=== PATIENT | female | born 1985 | race Asian ===

== ENCOUNTER → 2023-04-15 11:25 | Outpatient (REF) | payer BC, SELFPAY | LOC: PNTC 11:25 | PROVIDERS: ATTENDING PHYSICIAN Obstetrics & Gynecology | DX: O99.119 Other diseases of the blood and blood-forming organs and certain disorders involving the immune mechanism complicating pregnancy, unspecified trimester (principal) | CPT/HCPCS: 59025; 76815 ==

== ENCOUNTER → 2023-04-23 07:54 | Outpatient (REF) | payer BC, SELFPAY | LOC: PNTC 07:54 | PROVIDERS: ATTENDING PHYSICIAN Obstetrics & Gynecology | DX: O99.119 Other diseases of the blood and blood-forming organs and certain disorders involving the immune mechanism complicating pregnancy, unspecified trimester (principal) | CPT/HCPCS: 59025; 76815 ==

== ENCOUNTER → 2023-04-29 15:20 | Outpatient (REF) | payer BC, SELFPAY | LOC: PNTC 15:20 | PROVIDERS: ATTENDING PHYSICIAN Obstetrics & Gynecology | DX: M35.00 Sjogren syndrome, unspecified (principal) | CPT/HCPCS: 59025; 76816 ==

== ENCOUNTER → 2023-05-02 10:35 | Outpatient (REF) | payer BC, SELFPAY | LOC: CLAB 10:35 | PROVIDERS: ATTENDING PHYSICIAN Obstetrics & Gynecology | DX: Z34.90 Encounter for supervision of normal pregnancy, unspecified, unspecified trimester (principal) | CPT/HCPCS: 87070; 87077; 87147 ==

== ENCOUNTER → 2023-05-06 11:38 | Outpatient (REF) | payer BC, SELFPAY | LOC: PNTC 11:38 | PROVIDERS: ATTENDING PHYSICIAN Obstetrics & Gynecology | DX: O99.119 Other diseases of the blood and blood-forming organs and certain disorders involving the immune mechanism complicating pregnancy, unspecified trimester (principal) | CPT/HCPCS: 36415; 59025; 76815 ==

== ENCOUNTER 2023-05-12 19:59 | Inpatient (IN) | payer BC, SELFPAY ==
[2023-05-12 20:15] VITALS: BP 132/57; BMI 25.3
[2023-05-12 21:00] LABS: % Basophils 0.3 % (0-2); % Eosinophils 0.6 % (0-6); % Immature Granulocytes 1.9 % (0-0.5); % Monocytes 5.9 % (1.7-9.3); % Neutrophils 79.3 % (42.2-75.2); Absolute Eosinophils 0.1 10^3/uL (0-0.7); Absolute Immature Granulocytes 0.2 10^3/uL (0-0.05); Absolute Monocytes 0.5 10^3/uL (0.1-0.6); Absolute Neutrophils 6.3 10^3/uL (1.4-6.5); Hemoglobin 11.1 g/dL (12.0-16.0); Mean Corp Hgb Conc. 35.8 g/dL (33.0-37.0); Mean Corpuscular Hgb 33.9 pg (27.0-31.0); Mean Corpuscular Volume 94.8 fL (81.0-99.0); Nucleated Red Blood Cells % 0 %; Platelet Count 212 10^3/uL (130-400); Red Blood Cell Count 3.27 10^6/uL (4.20-5.40); Red Cell Dist. Width 12.4 % (11.5-14.5)
[2023-05-12] MEDS: PLAQUENIL 200 MG PO (21:11)
[2023-05-12] MEDS: DELTASONE 4 MG PO (21:11)
[2023-05-12] MEDS: PENICILLIN 110 UNITS IV (21:28)
[2023-05-12] MEDS: PITOCIN 30 UNITS/NSS 500 ML IV (22:31)
[2023-05-13] MEDS: SUBLIMAZE 100 MCG EPIDURAL (01:53)
[2023-05-13] MEDS: FENTANYL/BUPIVACAINE 100 EPIDURAL (01:53)
[2023-05-13] MEDS: PENICILLIN 55 UNITS IV (02:20)
[2023-05-13] MEDS: SOLU-CORTEF 100 MG IV ×4 (02:49→21:41)
[2023-05-13] MEDS: TRANEXAMIC ACID 100 IV (06:26)
[2023-05-13] MEDS: CYTOTEC 800 MCG RECTAL (06:39)
[2023-05-13] MEDS: PLAQUENIL 200 MG PO (08:39)
[2023-05-13] MEDS: TYLENOL 650 MG PO ×2 (12:21→20:01)
[2023-05-14] MEDS: SOLU-CORTEF 100 MG IV (03:43)
[2023-05-14] MEDS: TYLENOL 650 MG PO ×2 (04:18→12:46)
[2023-05-14 06:57] LABS: Hemoglobin 8.7 g/dL (12.0-16.0)
[2023-05-14] MEDS: PLAQUENIL 200 MG PO (08:00)
[2023-05-14] MEDS: DELTASONE 4 MG PO (08:06)
[2023-05-14 17:41] LABS: Syphilis/T. pallidum Ab Reflex Negative (Negative)
== END 2023-05-14 16:00 | disposition home or self-care (01) | DRG 807 ==
LOC: LDRP 19:59
PROVIDERS: ADMITTING PHYSICIAN Obstetrics & Gynecology
PROC: 10E0XZZ Delivery of Products of Conception, External Approach (ICD-10-PCS; 2023-05-13)
PROC: 0KQM0ZZ Repair Perineum Muscle, Open Approach (ICD-10-PCS; 2023-05-13)
DX: O70.1 Second degree perineal laceration during delivery (principal); Z37.0 Single live birth; O99.824 Streptococcus B carrier state complicating childbirth; Z3A.38 38 weeks gestation of pregnancy; O99.892 Other specified diseases and conditions complicating childbirth; M35.00 Sjogren syndrome, unspecified; M32.9 Systemic lupus erythematosus, unspecified; M06.9 Rheumatoid arthritis, unspecified
CPT/HCPCS: 88307; 85014; 85018; 85025; 86780; 86850; 86900; 86901

== ENCOUNTER → 2023-06-25 15:06 | Outpatient (REF) | payer SELFPAY ==
[2023-06-30 11:17] LABS: HPV, High Risk Detected; HPV, High Risk Source Cervical
[2023-07-01 08:19] LABS: HPV Genotype 16 Detected; HPV Genotype 18/45 by TMA Not Detected; HPV Genotype Source Cervical
== END ==
LOC: CPAP 15:06
PROVIDERS: ATTENDING PHYSICIAN Obstetrics & Gynecology
DX: Z01.419 Encounter for gynecological examination (general) (routine) without abnormal findings (principal); Z12.4 Encounter for screening for malignant neoplasm of cervix; Z11.51 Encounter for screening for human papillomavirus (HPV)
CPT/HCPCS: 87624; 87625

== ENCOUNTER → 2023-11-26 11:10 | Outpatient (REF) | payer BC, SELFPAY ==
[2023-11-26 12:45] LABS: % Basophils 0.4 % (0-2); % Immature Granulocytes 0.1 % (0-0.5); % Lymphocytes 32.4 % (20.5-51.1); % Monocytes 6.1 % (1.7-9.3); Absolute Eosinophils 0.1 10^3/uL (0-0.7); Absolute Lymphocytes 2.2 10^3/uL (1.2-3.4); Absolute Monocytes 0.4 10^3/uL (0.1-0.6); Absolute Neutrophils 4.1 10^3/uL (1.4-6.5); Hemoglobin 13.3 g/dL (12.0-16.0); Mean Corpuscular Hgb 32.8 pg (27.0-31.0); Mean Corpuscular Volume 93.6 fL (81.0-99.0); Mean Platelet Volume 9.5 fL (7.4-10.4); Nucleated Red Blood Cells % 0 %; Platelet Count 277 10^3/uL (130-400); Red Blood Cell Count 4.06 10^6/uL (4.20-5.40); Red Cell Dist. Width 11.5 % (11.5-14.5); White Blood Cell Count 6.9 10^3/uL (4.8-10.8)
[2023-11-26 12:56] LABS: Erythrocyte Sed Rate 22 mm/hour (0-20)
[2023-11-26 13:54] LABS: ALT (SGPT) 19 U/L (0-35); AST (SGOT) 24 U/L (14-36); Albumin 4.9 g/dl (3.5-5.0); Alkaline Phosphatase 61 U/L (38-126); Blood Urea Nitrogen 18 mg/dl (7-17); Calcium 9.8 mg/dl (8.4-10.2); Carbon Dioxide 21 mmol/L (22-30); Chloride 104 mmol/L (98-107); Glucose 78 mg/dl (70-99); HDL Cholesterol 64 mg/dl; LDL Cholesterol, Calculated 112 mg/dl; Potassium 4.3 mmol/L (3.5-5.1); Sodium 142 mmol/L (135-145); Total Bilirubin 0.6 mg/dl (0.2-1.3); Total Cholesterol 190 mg/dl (50-199); Total Protein 8.5 g/dl (6.3-8.2); Triglyceride 73 mg/dl (10-149); Very Low Density Lipoprotein 14 mg/dl (0-30); eGFR > 60.00
[2023-11-26 13:58] LABS: C-Reactive Protein < 5.00 mg/L (0.0-10.00)
[2023-11-26 14:28] LABS: TSH 1.35 uIU/ml (0.47-4.68)
[2023-11-28 15:39] LABS: Rheumatoid Agglutinin Positive (<10 IU)
[2023-11-28 17:01] LABS: Rheumatoid Agg. Semi-quant 512 IU
[2023-11-29 07:46] LABS: ANA, IgG Reflex to HEp-2 Detected (None Detected)
== END ==
LOC: REG 11:10
PROVIDERS: ATTENDING PHYSICIAN Nurse Practitioner
DX: Z39.2 Encounter for routine postpartum follow-up (principal); M06.9 Rheumatoid arthritis, unspecified; M32.9 Systemic lupus erythematosus, unspecified; D50.9 Iron deficiency anemia, unspecified; R53.82 Chronic fatigue, unspecified; E78.5 Hyperlipidemia, unspecified; R00.2 Palpitations
CPT/HCPCS: 36415; 80053; 80061; 84443; 85025; 85652; 86038; 86140; 86430; 86431; 93225; 93226

== ENCOUNTER → 2024-02-25 12:09 | Outpatient (REF) | payer BC, SELFPAY ==
[2024-02-25 13:14] LABS: % Basophils 0.6 % (0-2); % Eosinophils 1.5 % (0-6); % Immature Granulocytes 1.2 % (0-0.5); % Lymphocytes 28.5 % (20.5-51.1); % Monocytes 8.7 % (1.7-9.3); % Neutrophils 59.5 % (42.2-75.2); Absolute Eosinophils 0.1 10^3/uL (0-0.7); Absolute Immature Granulocytes 0.1 10^3/uL (0-0.05); Absolute Lymphocytes 2.1 10^3/uL (1.2-3.4); Absolute Monocytes 0.6 10^3/uL (0.1-0.6); Absolute Neutrophils 4.3 10^3/uL (1.4-6.5); Hematocrit 37.1 % (37.0-47.0); Hemoglobin 12.4 g/dL (12.0-16.0); Mean Corp Hgb Conc. 33.4 g/dL (33.0-37.0); Mean Corpuscular Hgb 31.3 pg (27.0-31.0); Mean Corpuscular Volume 93.7 fL (81.0-99.0); Mean Platelet Volume 8.4 fL (7.4-10.4); Nucleated Red Blood Cells % 0 %; Platelet Count 373 10^3/uL (130-400); Red Blood Cell Count 3.96 10^6/uL (4.20-5.40); Red Cell Dist. Width 11.3 % (11.5-14.5); White Blood Cell Count 7.3 10^3/uL (4.8-10.8)
[2024-02-25 13:21] LABS: Urine Albumin Negative (Neg - Trace); Urine Bilirubin Negative (Negative); Urine Character Clear (Clear); Urine Color Yellow; Urine Glucose Negative (Negative); Urine Ketone Negative (Negative); Urine Leukocyte Negative (Negative); Urine Nitrite Negative (Negative); Urine Occult Blood Negative (Negative); Urine Specific Gravity 1.025 (<1.030); Urine Urobilinogen Negative (Neg - 1+)
[2024-02-25 13:44] LABS: Erythrocyte Sed Rate 80 mm/hour (0-20)
[2024-02-25 14:01] LABS: ALT (SGPT) 27 U/L (0-35); AST (SGOT) 26 U/L (14-36); Albumin 4.8 g/dl (3.5-5.0); Alkaline Phosphatase 57 U/L (38-126); Blood Urea Nitrogen 17 mg/dl (7-17); Calcium 9.8 mg/dl (8.4-10.2); Carbon Dioxide 27 mmol/L (22-30); Chloride 103 mmol/L (98-107); Glucose 80 mg/dl (70-99); Potassium 4.4 mmol/L (3.5-5.1); Sodium 142 mmol/L (135-145); Total Bilirubin 0.2 mg/dl (0.2-1.3); eGFR > 60.00
[2024-02-25 14:46] LABS: Hepatitis B Surface Antigen Negative (Negative)
[2024-02-25 15:05] LABS: Hepatitis B Core Ab, Total Negative (Negative); Hepatitis C Antibody Negative (Negative)
[2024-02-25 15:17] LABS: Urine Protein 7 mg/dl
[2024-02-25 19:15] LABS: Hepatitis B Surface Antibody Positive
[2024-02-27 15:09] LABS: Rheumatoid Agglutinin Positive (<10 IU)
[2024-02-27 15:19] LABS: Rheumatoid Agg. Semi-quant 256 IU
[2024-02-27 17:24] LABS: Quantiferon Mitogen minus NIL 9.01 IU/mL; Quantiferon NIL 0.05 IU/mL; Quantiferon TB Gold Plus Negative (Negative)
== END ==
LOC: RAD 12:09
PROVIDERS: ATTENDING PHYSICIAN Student in an Organized Health Care Education/Training Program; FAMILY PHYSICIAN Nurse Practitioner
DX: M06.9 Rheumatoid arthritis, unspecified (principal); M32.9 Systemic lupus erythematosus, unspecified; M35.00 Sjogren syndrome, unspecified; Z34.90 Encounter for supervision of normal pregnancy, unspecified, unspecified trimester; Z51.81 Encounter for therapeutic drug level monitoring
CPT/HCPCS: 36415; 73120; 80053; 81003; 82570; 83516; 84156; 85025; 85610; 85613; 85652; 85730; 86015; 86038; 86140; 86200; 86225; 86235; 86430; 86431; 86480; 86704; 86706; 86803; 87340

== ENCOUNTER → 2024-03-27 09:21 | Outpatient (REF) | payer BC, SELFPAY ==
[2024-03-27 10:13] LABS: Urine Albumin Negative (Neg - Trace); Urine Bilirubin Negative (Negative); Urine Character Clear (Clear); Urine Color Yellow; Urine Glucose Negative (Negative); Urine Ketone Negative (Negative); Urine Leukocyte Trace (Negative); Urine Nitrite Negative (Negative); Urine Occult Blood Negative (Negative); Urine Urobilinogen Negative (Neg - 1+)
[2024-03-27 10:14] LABS: % Basophils 0.3 % (0-2); % Eosinophils 0.6 % (0-6); % Immature Granulocytes 0.1 % (0-0.5); % Lymphocytes 27.9 % (20.5-51.1); % Monocytes 6.6 % (1.7-9.3); % Neutrophils 64.5 % (42.2-75.2); Absolute Lymphocytes 1.9 10^3/uL (1.2-3.4); Absolute Monocytes 0.5 10^3/uL (0.1-0.6); Absolute Neutrophils 4.4 10^3/uL (1.4-6.5); Hematocrit 34.3 % (37.0-47.0); Hemoglobin 11.9 g/dL (12.0-16.0); Mean Corp Hgb Conc. 34.7 g/dL (33.0-37.0); Mean Corpuscular Hgb 32.3 pg (27.0-31.0); Mean Corpuscular Volume 93.2 fL (81.0-99.0); Mean Platelet Volume 8.5 fL (7.4-10.4); Nucleated Red Blood Cells % 0 %; Platelet Count 270 10^3/uL (130-400); Red Blood Cell Count 3.68 10^6/uL (4.20-5.40); Red Cell Dist. Width 12.4 % (11.5-14.5); White Blood Cell Count 6.8 10^3/uL (4.8-10.8)
[2024-03-27 10:21] LABS: Erythrocyte Sed Rate 38 mm/hour (0-20)
[2024-03-27 10:36] LABS: Urine Mucus Many; Urine Red Blood Cell 0-2 /HPF (0-2); Urine Squamous Cell >30 /LPF (Few); Urine White Cell 0-2 /HPF (0-5)
[2024-03-27 10:40] LABS: ALT (SGPT) 16 U/L (0-35); AST (SGOT) 22 U/L (14-36); Albumin 4.7 g/dl (3.5-5.0); Alkaline Phosphatase 46 U/L (38-126); Blood Urea Nitrogen 12 mg/dl (7-17); Calcium 8.9 mg/dl (8.4-10.2); Carbon Dioxide 25 mmol/L (22-30); Chloride 102 mmol/L (98-107); Creatine Phosphokinase 44 U/L (30-135); Glucose 78 mg/dl (70-99); Potassium 3.7 mmol/L (3.5-5.1); Sodium 140 mmol/L (135-145); Total Bilirubin 0.3 mg/dl (0.2-1.3); Total Protein 8.1 g/dl (6.3-8.2); eGFR > 60.00
[2024-03-27 10:41] LABS: C-Reactive Protein < 5.00 mg/L (0.0-10.00)
[2024-03-27 10:58] LABS: Urine Protein 5 mg/dl
[2024-03-28 23:34] LABS: ds-DNA Ab, IgG Reflex To Titer 4 IU (0-24)
[2024-03-29 11:14] LABS: Smith (ENA) Antibody, IgG 6 AU/mL (0-40)
[2024-03-29 18:57] LABS: Glu-6-Phosphate Dehydrogenase 10.2 U/g Hb (9.9-16.6)
[2024-03-30 04:34] LABS: Complement C3 81 mg/dl (88-165)
== END ==
LOC: REG 09:21
PROVIDERS: ATTENDING PHYSICIAN Student in an Organized Health Care Education/Training Program; FAMILY PHYSICIAN Nurse Practitioner
DX: M06.9 Rheumatoid arthritis, unspecified (principal); M32.9 Systemic lupus erythematosus, unspecified; M35.00 Sjogren syndrome, unspecified; Z39.1 Encounter for care and examination of lactating mother; Z39.2 Encounter for routine postpartum follow-up; Z51.81 Encounter for therapeutic drug level monitoring
CPT/HCPCS: 36415; 80053; 81003; 81015; 82085; 82550; 82570; 82955; 84156; 85025; 85652; 86140; 86160; 86225; 86235

== ENCOUNTER → 2024-03-31 10:21 | Outpatient (REF) | payer BC, SELFPAY | LOC: EMG 10:21 | PROVIDERS: ATTENDING PHYSICIAN Student in an Organized Health Care Education/Training Program; FAMILY PHYSICIAN Nurse Practitioner | DX: G62.9 Polyneuropathy, unspecified (principal); M06.9 Rheumatoid arthritis, unspecified; M32.9 Systemic lupus erythematosus, unspecified; M35.00 Sjogren syndrome, unspecified; Z39.1 Encounter for care and examination of lactating mother; Z39.2 Encounter for routine postpartum follow-up; Z51.81 Encounter for therapeutic drug level monitoring | CPT/HCPCS: 95886; 95909 ==

== ENCOUNTER → 2024-05-29 09:24 | Outpatient (REF) | payer BC, SELFPAY | LOC: REG 09:24 | PROVIDERS: ATTENDING PHYSICIAN Student in an Organized Health Care Education/Training Program; FAMILY PHYSICIAN Nurse Practitioner | DX: G62.9 Polyneuropathy, unspecified (principal); M06.9 Rheumatoid arthritis, unspecified; M19.90 Unspecified osteoarthritis, unspecified site; M32.9 Systemic lupus erythematosus, unspecified; M35.00 Sjogren syndrome, unspecified; Z39.1 Encounter for care and examination of lactating mother; Z39.2 Encounter for routine postpartum follow-up; Z51.81 Encounter for therapeutic drug level monitoring | CPT/HCPCS: 36415 ==

== ENCOUNTER → 2024-07-20 10:40 | Outpatient (REF) | payer BC, SELFPAY ==
[2024-07-20 11:45] LABS: % Basophils 0.5 % (0-2); % Eosinophils 1.4 % (0-6); % Immature Granulocytes 0.5 % (0-0.5); % Lymphocytes 15.5 % (20.5-51.1); % Monocytes 9.8 % (1.7-9.3); % Neutrophils 72.3 % (42.2-75.2); Absolute Eosinophils 0.1 10^3/uL (0-0.7); Absolute Lymphocytes 0.9 10^3/uL (1.2-3.4); Absolute Monocytes 0.6 10^3/uL (0.1-0.6); Absolute Neutrophils 4.1 10^3/uL (1.4-6.5); Hematocrit 38.7 % (37.0-47.0); Hemoglobin 13.1 g/dL (12.0-16.0); Mean Corp Hgb Conc. 33.9 g/dL (33.0-37.0); Mean Corpuscular Hgb 32.3 pg (27.0-31.0); Mean Corpuscular Volume 95.3 fL (81.0-99.0); Mean Platelet Volume 9.1 fL (7.4-10.4); Nucleated Red Blood Cells % 0 %; Platelet Count 297 10^3/uL (130-400); Red Blood Cell Count 4.06 10^6/uL (4.20-5.40); Red Cell Dist. Width 12.1 % (11.5-14.5); White Blood Cell Count 5.7 10^3/uL (4.8-10.8)
[2024-07-20 12:22] LABS: Beta HCG Quantitative < 2.39 mIU/ml
[2024-07-20 12:27] LABS: ALT (SGPT) 13 U/L (0-35); AST (SGOT) 19 U/L (14-36); Albumin 4.8 g/dl (3.5-5.0); Alkaline Phosphatase 27 U/L (38-126); Blood Urea Nitrogen 22 mg/dl (7-17); Calcium 9.1 mg/dl (8.4-10.2); Glucose 86 mg/dl (70-99); Total Bilirubin 0.5 mg/dl (0.2-1.3); Total Protein 7.7 g/dl (6.3-8.2); eGFR > 60.00
[2024-07-20 12:36] LABS: TSH Reflex To Free T4 1.14 uIU/ml (0.47-4.68)
[2024-07-20 12:42] LABS: Carbon Dioxide 23 mmol/L (22-30); Chloride 108 mmol/L (98-107); Potassium 4.5 mmol/L (3.5-5.1); Sodium 142 mmol/L (135-145)
== END ==
LOC: REG 10:40
PROVIDERS: ATTENDING PHYSICIAN Obstetrics & Gynecology Gynecologic Oncology; FAMILY PHYSICIAN Nurse Practitioner
DX: G62.9 Polyneuropathy, unspecified (principal); M06.9 Rheumatoid arthritis, unspecified; M19.90 Unspecified osteoarthritis, unspecified site; M32.9 Systemic lupus erythematosus, unspecified; M35.00 Sjogren syndrome, unspecified; Z39.1 Encounter for care and examination of lactating mother; Z39.2 Encounter for routine postpartum follow-up; Z51.81 Encounter for therapeutic drug level monitoring
CPT/HCPCS: 36415; 80053; 84443; 84702; 85025

== ENCOUNTER 2024-07-28 06:27 | Day surgery (SDC) | payer BC, SELFPAY ==
[2024-07-24 14:12] VITALS: BMI 19.8
--- NOTE | 2024-07-26 15:35 | W.CON.GYNONC ---
Chief Complaint
-
Cervical dysplasia
History of Present Illness
39�year�old woman referred to me by Dr James. Patient was receiving her care at [facility] for gynecology. Apparently she
had a Pap smear 05/07/2022 that was HSIL with high risk HPV positive. Colposcopy 06/04/2022 was done with confirmation of
cervical biopsy at 4:00 revealing JACQUELINE�2. Remainder of the biopsies at 1 and 10:00 were benign and ECC was atypical epithelium,
she opted not to have treatment fearing that it would interfere with getting .
Past OB history is significant for
2001 spontaneous vaginal delivery
2021 miscarriage 15 weeks
2023 spontaneous vaginal delivery
[facility] [employer] history significant for menarche at 12, menses typically occurring every 30 days, lasting 4 to 5 days
Patient has used IUI to become last
Pap smear dated June 25, 2023 shows less than optimal adequacy due to low cellularity, cytology shows LSIL cannot exclude
HSIL,
High risk HPV was screened for and genotype 16 is detected.
Past medical history significant for lupus, rheumatoid arthritis, Sjogren's disease as well as right sided body nerve pain neuropathy
Past surgical history none
Medications include Plaquenil 200 mg, prednisone 5 mg, duloxetine Unisom, melatonin, vitamin D3 and vitamins
Allergies No�Known�Allergies
Medications
duloxetine�60�mg�capsule,delayed�release 1�p.o.�q.�day
hydroxychloroquine�200�mg�tablet 1�p.o.�q.�day
prednisone�5�mg�tablet 1�p.o.�q.�day
Social history, Works as RN at [employer], denies tobacco alcohol drug or marijuana use
Medical History
Allergies
Allergies reflect when allergies were last updated in [facility].
No Known Allergies Allergy (Verified 07/23/24 15:05)
Physical Exam
Physical Exam
Pelvic Examination:
External normal labia, urethra, anus.
Vagina: Normal mucosa.
Cervix: normal appearance, no discharge.
Uterus: normal size.
Adnexa: No pelvic mass.
RVE: no masses or nodularity
General: Well developed, well nourished patient. In no acute distress.
Head: Atraumatic and normocephalic.
Neck: No thyromegaly. No cervical lymphadenopathy.
Lungs: Clear to auscultation. Good air movement bilaterally.
Cardiac: Regular rate. Regular rhythm. No murmurs appreciated.
Right Breast: No masses or dimpling. No nipple discharge.
Left Breast: No masses or dimpling. No nipple discharge.
Abdomen: Abdomen is soft. Non�tender to palpation. Non�distended.
Extremities: No edema.
Hematologic/Lymphatic: No palpable lymphadenopathy.
Musculoskeletal: Normal range of motion. Strength and Tone are normal.
Skin:Non�jaundiced. No petechia. No purpura.
Neurologic: Speech is fluent. Normal gait and station. Cranial nerves intact.
Impression / Plan
-
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 She has immunosuppression
chronically with prednisone.
Unfortunately she has delayed her care for at least 2 years because of concern for inability to conceive after any excisional
procedures for cervix. I spent a fair amount of time educating her about development of cervical intraepithelial neoplasia, risk factors
and typical treatments that are offered.
I am recommending colposcopy with LEEP cone biopsy of the cervix and ECC.
Surgery will be scheduled next week at [facility]
Patient will need IV antibiotics Ancef 2 g as well as stress dose steroids methylprednisolone 100 mg IV
She is at a higher risk of perioperative infection
Patient also was counseled that she will need close follow�up with [employer] on a regular basis with and Pap smear every 6 months
because of chronic immunosuppression.. She remains at risk for development of intraepithelial neoplasia and cancer involving
cervix, vagina, external genitalia including vulva and anus as well as oropharynx.
[2024-07-28] VITALS (10 sets, daily range): BP systolic 101–126; BP diastolic 53–87; BMI 19.8
[2024-07-28] MEDS: NORMOSOL-R/PLASMALYTE-A 1000 IV (12:15)
[2024-07-28] MEDS: NEURONTIN 300 MG PO (12:36)
[2024-07-28] MEDS: CELEBREX 200 MG PO (12:36)
[2024-07-28] MEDS: TYLENOL 1000 MG PO (12:37)
--- NOTE | 2024-07-28 13:29 | PTCARENOTE ---
Solumedrol to be given in OR per surgeon. Order clarified with MD Dr. Patten.
--- NOTE | 2024-07-28 14:00 | SUR.OPER ---
Patient checked on and offered warm blankets/bathroom trip. Patient stated that she did not need anything. Will monitor patient.
[2024-07-28] MEDS: HEPARIN 5000 UNITS SC (14:08)
--- NOTE | 2024-07-28 14:49 | PTCARENOTE ---
Report given to Grecia TENORIO at 1448.
[2024-07-28] MEDS: DILAUDID 0.25 MG IV ×3 (16:14→16:37)
[2024-07-28] MEDS: ZOFRAN 4 MG IV (16:14)
--- NOTE | 2024-07-28 17:42 | OR.RPT ---
Operative Report
Operative Report
Date of Surgery 07/28/2024
Primary Surgeon: Rey Patten MD
Assisting Surgeon: Corey Rodriguez PA-C
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
Post-op Diagnosis: Same
Procedure Performed: Exam under anesthesia, colposcopy of cervix and upper vagina, LEEP cone biopsy of the cervix with ECC
Anesthesia Type: General LMA intubation
Specimen / Cultures: Anterior lip suture at 12:00, posterior lip suture at 6:00, Top-Hat, ECC
Estimated Blood Loss: 5 cc
Complications: None
Operative Findings: Colposcopy of the cervix reveals absence of Lugol solution uptake involving circumferential portion of the transformation zone, there is some atypical vascularity present, the area of abnormality goes into the endocervix and is
slightly lobulated, ectocervix does not exhibit any evidence of dysplasia peripherally. Upper vaginal fornices are without any abnormal lesions and the remainder of the vagina is unremarkable. Bilateral parametria are normal uterus is mid position
and approximately 7 to 8 weeks in size
Operative procedure in detail, this patient was taken to the operating room and placed in supine position, general anesthesia was administered and LMA intubation was performed she was placed in lithotomy position using yellowfin stirrups and prepped
on perineum vagina upper thighs and lower abdomen. Timeout procedure was carried out. She received 2 g of Ancef. We went ahead and placed a coated speculum in the vagina and colposcopy of the cervix was performed after application of Lugol's
solution. Findings are summarized above. I performed a paracervical block using 10 cc 1% lidocaine with epinephrine and another 10 cc 1% lidocaine with epinephrine was injected into stroma of the cervix circumferentially. A weighted speculum was
placed in the posterior fornix anterior lip of the cervix was grasped with single-tooth tenaculum. 20 x 10 mm loop was used to excise the anterior lip of cervix. Specimen was tagged at 12:00. Same loop was used to remove the posterior lip of the
cervix, specimen was tagged at 6:00. A 15 mm loop was used then deeper endocervix to remove the Top-Hat. The cervical canal was dilated and sharp curettage of the endocervix was performed and this was submitted as ECC. The bed of the conization
was cauterized with rollerball cautery at 50 [address]. Monsel solution was applied to the cervical conization bed. 1 g of Michell was applied as well. Excellent hemostasis was present all instruments were removed patient was awakened extubated and
returned back to recovery room stable awake and extubated condition. Counts of laps instruments and needle was correct x 2. I was present and scrubbed for entire procedure as dictated above
Disposition: To PACU stable awake and extubated
== END 2024-07-28 18:12 | disposition home or self-care (01) ==
LOC: SDS 06:27
PROVIDERS: ATTENDING PHYSICIAN Obstetrics & Gynecology Gynecologic Oncology; FAMILY PHYSICIAN Nurse Practitioner
DX: D06.9 Carcinoma in situ of cervix, unspecified (principal)
CPT/HCPCS: 57461; 88305; 88307; 36415; 86850; 86900; 86901

== ENCOUNTER → 2025-01-02 07:41 | Outpatient (REF) | payer BC, SELFPAY ==
[2025-01-02 09:12] LABS: Hematocrit 41.2 % (37.0-47.0); Hemoglobin 13.5 g/dL (12.0-16.0); Mean Corp Hgb Conc. 32.8 g/dL (33.0-37.0); Mean Corpuscular Volume 94.9 fL (81.0-99.0); Nucleated Red Blood Cells % 0 %; Platelet Count 280 10^3/uL (130-400); Red Cell Dist. Width 11.9 % (11.5-14.5)
[2025-01-02 09:15] LABS: Urine Character Clear (Clear)
[2025-01-02 09:37] LABS: ALT (SGPT) 16 U/L (0-35); AST (SGOT) 23 U/L (14-36); Albumin 4.8 g/dl (3.5-5.0); Alkaline Phosphatase 33 U/L (38-126); Blood Urea Nitrogen 12 mg/dl (7-17); Calcium 9.2 mg/dl (8.4-10.2); Carbon Dioxide 27 mmol/L (22-30); Chloride 104 mmol/L (98-107); Glucose 88 mg/dl (70-99); Potassium 4.3 mmol/L (3.5-5.1); Sodium 135 mmol/L (135-145); Total Protein 8.6 g/dl (6.3-8.2); eGFR > 60.00
[2025-01-02 09:42] LABS: C-Reactive Protein < 5.00 mg/L (0.0-10.00)
[2025-01-02 10:01] LABS: Urine Red Blood Cell None Seen /HPF (0-2); Urine Squamous Cell 16-20 /LPF (Few); Urine White Cell None Seen /HPF (0-5)
[2025-01-05 01:27] LABS: ds-DNA Ab, IgG Reflex To Titer 7 IU (0-24)
== END ==
LOC: REG 07:41
PROVIDERS: ATTENDING PHYSICIAN Student in an Organized Health Care Education/Training Program; FAMILY PHYSICIAN Nurse Practitioner
DX: G62.9 Polyneuropathy, unspecified (principal); L98.9 Disorder of the skin and subcutaneous tissue, unspecified; M06.9 Rheumatoid arthritis, unspecified; M19.90 Unspecified osteoarthritis, unspecified site; M32.9 Systemic lupus erythematosus, unspecified; M35.00 Sjogren syndrome, unspecified; Z39.1 Encounter for care and examination of lactating mother; Z39.2 Encounter for routine postpartum follow-up; Z51.81 Encounter for therapeutic drug level monitoring
CPT/HCPCS: 36415; 80053; 81003; 81015; 82550; 82570; 84156; 85025; 85652; 86140; 86160; 86225